=== PATIENT | female | born 2000 | race Caucasian/White ===

== ENCOUNTER 2021-01-17 06:09 | Emergency (ER) | payer OTHER ==
[~2021-01-17] VITALS: Ht 170.2 cm; Wt 74.8 kg
[2021-01-17] MEDS ORDERED: DIPHENHIST50 MG PO (07:16)
[2021-01-17] MEDS ORDERED: PREDNISONE 10 M10 M1 PO (07:16)
[2021-01-17 07:26] VITALS: BP 155/88
== END 2021-01-17 07:27 | disposition home or self-care (01) ==
LOC: M.ERS 06:09
DX: L25.9 Unspecified contact dermatitis, unspecified cause (principal)